=== PATIENT | female | born 1945 | race Caucasian/White ===

== ENCOUNTER 2016-11-15 10:38 | Emergency (ER) | payer MEDICARE, BC ==
[2016-11-15 10:48] VITALS: BP 156/75
--- NOTE | 2016-11-15 11:15 | ED Physician Documentation ---
History of Present Illness - Stated complaint Stated Complaint: LT FT INJURY - Chief complaint Chief Complaint: Ext Problem - Additonal information Additional information: hx from pt 71 female inverted L ankle pain 5th MT and great toe Review of Systems Musculoskeletal: reports: Pain with weight bearing PD PAST MEDICAL HISTORY - Present Medications Home Medications: Ambulatory Orders Medication Instructions Recorded Confirmed Aspirin 81 mg PO DAILY 03/16/13 11/15/16 Atenolol [Tenormin] 25 mg PO DAILY 03/16/13 11/15/16 Calcium [Calcio [place]] 1,200 mg PO DAILY 03/16/13 11/15/16 Cholecalciferol (Vitamin D3) 2,000 unit PO DAILY 03/16/13 11/15/16 [Vitamin D3] Cod Liver Oil 2,000 mg PO DAILY 03/16/13 11/15/16 Hydrochlorothiazide 25 mg PO DAILY 03/16/13 11/15/16 Losartan [Cozaar] 50 mg PO DAILY 03/16/13 11/15/16 Lovastatin [Mevacor] 20 mg PO DAILY 03/16/13 11/15/16 Magnesium Oxide [Magnesium] 500 mg PO DAILY 03/16/13 11/15/16 Multivitamin [Multivitamins] 1 each PO DAILY 03/16/13 11/15/16 Biotin 1,000 mcg PO DAILY 06/08/16 11/15/16 - Allergies Allergies/Adverse Reactions: Allergies Allergy/AdvReac Type Severity Reaction Status Date / Time adhesive Allergy Unknown Verified 11/15/16 10:47 melon Allergy Hives Verified 11/15/16 10:47 silver * Allergy Rash Verified 11/15/16 10:44 [From Tegaderm AG Mesh] strawberry Allergy Hives Verified 11/15/16 10:47 watermelon Allergy Hives Verified 11/15/16 10:47 PD ED PE NORMAL - Vitals Vital signs reviewed: Yes - Extremities Extremities: Other (ankle NT, foot TTP and swelling to mid 5th MT, bruising and some pain with ROM to proximal great toe, MSV intact, no open wounds) Results - Vitals Vitals: Vital Signs - 24 hr 11/15/16 10:42 Temperature 36.5 C Heart Rate 68 Respiratory 14 Rate Blood Pressure 156/75 H O2 Saturation 100 Oxygen O2 Source Room air - Rads (name of study) foot Radiology: See rad report (cortical irreg head 1st MT and base 5th MT could represent mildly displaced fx )and that is where pt hurts)) PD MEDICAL DECISION MAKING - ED course ED course: possible fx seen on xray discussed splint / crutches or knee scooter vs walking boot - think walking boot will be safest and best for pt Departure - Departure Disposition: 01 Home, Self Care Clinical Impression: Foot fracture, left Qualifiers: Encounter type: initial encounter Fracture type: closed Qualified Code(s): S92.902A - Unspecified fracture of left foot, initial encounter for closed fracture Condition: Good Instructions: ED Fx Foot, ED Boot Aircast Walker Follow-Up: Carla Monique MD [Primary Care Provider] - [facility] [Provider Group] Comments: There is a slight irregularity to base of the 5th and the head of the 1st metatarsals which matches the sites that are painful and suggests there are subtle fractures in those areas Please remember to take the boot off with resting to decrease the chance of a blood clot Ice elevation and tylenol as needed for the pain Follow up with orthopedics - you need to call the clinic to schedule And please get your blood pressure rechecked - it was high today
--- NOTE | 2016-11-15 11:42 | XRAY Preliminary Report ---
Exam: XR Foot 3 View LT Impression: Cortical irregularity involving the head of the first metatarsal that may represent degen erative changes or a mildly displaced fracture. Cortical irregularity involving the base of the fifth metatarsal that may represent a mildly displace d fracture or nutrient channel. [facility] SITE ID: [id number]
--- NOTE | 2016-11-15 11:45 | XRAY Report ---
EXAM: LEFT FOOT RADIOGRAPHY EXAM DATE: 11/15/2016 11:24 AM. CLINICAL HISTORY: 5th MT and great toe pain/swell/bruise. COMPARISON: None. TECHNIQUE: 3 views. FINDINGS: Cortical irregularity involving the head of the first metatarsal may represent degenerative changes o r a fracture. Mild joint space narrowing is seen involving the first metatarsal-phalangeal joint. No radiopaque foreign body is seen. There is cortical irregularity at the base of the fifth metatarsal that may represent a nutrient jane natalie or mildly displaced fracture. Adjacent soft tissue swelling is noted. Impression: Cortical irregularity involving the head of the first metatarsal that may represent degen erative changes or a mildly displaced fracture. Cortical irregularity involving the base of the fifth metatarsal that may represent a mildly displace d fracture or nutrient channel. [facility] Referring Provider Line: [phone] SITE ID: [id number]
== END 2016-11-15 12:51 | disposition home or self-care (01) ==
LOC: ED 10:38
DX: S92.902A Unspecified fracture of left foot, initial encounter for closed fracture (principal); X50.0XXA Overexertion from strenuous movement or load, initial encounter; Z79.82 Long term (current) use of aspirin
CPT/HCPCS: 99283

== ENCOUNTER 2017-08-04 15:26 | Outpatient (CLI) | payer MEDICARE, BC ==
--- NOTE | 2017-08-05 16:24 | Mammography Report ---
DATE OF SERVICE: 08/04/2017 DIGITAL SCREENING MAMMOGRAM: 08/04/2017 CLINICAL INDICATION: A 71-year-old with personal history of left breast cancer. COMPARISON: 10/2015, 06/2014, 12/2012, 07/2012, 11/2011, 05/2011, 10/2010, 09/2010. TECHNIQUE: Routine CC and MLO projections were obtained of the breasts. FINDINGS: The breasts again demonstrate scattered fibroglandular densities bilaterally. Postoperative and posttreatment changes in the left breast are stable. Coarse and punctate, typically benign calcifications are present. No suspicious masses, clustered microcalcifications, or regions of architectural distortion are identified. IMPRESSION: BENIGN FINDINGS. RECOMMENDATION: ROUTINE ANNUAL SCREENING UNLESS OTHERWISE CLINICALLY INDICATED. BIRADS CATEGORY 2-BENIGN FINDINGS. STANDARD QUALIFYING STATEMENTS: 1. This examination was reviewed with the aid of Computer-Aided Detection (CAD). 2. A negative or benign imaging report should not delay biopsy if clinically suspicious findings are present. Consider surgical consultation if warranted. More than 5% of cancers are not identified by imaging. 3. Dense breasts may obscure an underlying neoplasm. TD: 08/05/2017 16:24
== END 2017-08-04 15:27 | disposition home or self-care (01) ==
LOC: DI 15:26
PROVIDERS: ATTEND Internal Medicine Hematology & Oncology
DX: Z12.31 Encounter for screening mammogram for malignant neoplasm of breast (principal); Z85.3 Personal history of malignant neoplasm of breast
CPT/HCPCS: 77067

== ENCOUNTER 2018-04-25 10:51 | Outpatient (CLI) | payer MEDICARE, BC ==
--- NOTE | 2018-04-25 18:01 | XRAY Report ---
Reason: MALIGNANT NEOPLASM OF UNSPECIFIED SITE OF LEFT FEM Procedure Date: 04/25/2018 Accession Number: [id number] / [id number] Procedure: XR - Chest 2 View X-Ray CPT Code: 93262 FULL RESULT: EXAM: CHEST RADIOGRAPHY EXAM DATE: 04/25/2018 11:07 AM. CLINICAL HISTORY: Left-sided lower rib pain. History of lumpectomy 7 years ago. COMPARISON: None. TECHNIQUE: 2 views. FINDINGS: Lungs/Pleura: Normal volumes. No focal opacities are evident. No pleural effusion or pneumothorax. Mediastinum: Normal cardiomediastinal contour. Other: Degenerative changes within the spine. IMPRESSION: No acute cardiopulmonary abnormality. [facility]
== END 2018-04-25 10:52 | disposition home or self-care (01) ==
LOC: DI 10:51
PROVIDERS: ATTEND Surgery
DX: R07.81 Pleurodynia (principal); C50.912 Malignant neoplasm of unspecified site of left female breast
CPT/HCPCS: 71046

== ENCOUNTER 2018-08-04 09:50 | Outpatient (CLI) | payer MEDICARE, BC ==
--- NOTE | 2018-08-07 09:26 | Mammography Report ---
Reason: SCREENING MAMMO Procedure Date: 08/04/2018 Accession Number: [id number] / [id number] Procedure: VANESSA - Screening Mammo w/Jon CPT Code: FULL RESULT: EXAM: Screening Mammo w/Jon DATE: 08/04/2018 10:36 AM CLINICAL HISTORY: Routine screening. Personal history of treated breast cancer left breast 2010. Family history breast cancer in sister at age 64. TECHNIQUE: Bilateral CC and MLO views were obtained. COMPARISON: 08/04/2017 through 12/08/2012 FINDINGS: The breasts demonstrate scattered fibroglandular densities bilaterally. Left breast: There are stable lumpectomy changes from the posterior upper outer left breast with dense fat necrosis calcifications in the operative bed. There are no suspicious masses, calcifications or areas of nonoperative distortion. Right breast: There are no suspicious masses, calcifications or areas of distortion. Stable biopsy marker in the superior breast. IMPRESSION: Benign findings RECOMMENDATION: Routine annual screening unless otherwise clinically indicated. BI-RADS CATEGORY 2: Benign findings STANDARD QUALIFYING STATEMENTS: 1. This examination was not reviewed with the aid of Computer-Aided Detection (CAD). 2. A negative or benign imaging report should not preclude biopsy if clinically suspicious findings are present. 3. Dense breasts may obscure an underlying neoplasm. 4. This examination was reviewed with the aid of 3D breast imaging (tomosynthesis).
== END 2018-08-04 09:51 | disposition home or self-care (01) ==
LOC: DI 09:50
PROVIDERS: ATTEND Internal Medicine Hematology & Oncology
DX: Z12.31 Encounter for screening mammogram for malignant neoplasm of breast (principal); Z85.3 Personal history of malignant neoplasm of breast; Z80.3 Family history of malignant neoplasm of breast
CPT/HCPCS: 77063; 77067

== ENCOUNTER 2018-08-04 09:55 | Outpatient (CLI) | payer MEDICARE, BC ==
--- NOTE | 2018-08-07 16:32 | DEXA Report ---
Reason: ASYMPTOMATIC MENOPAUSAL STATE Procedure Date: 08/04/2018 Accession Number: [id number] / [id number] Procedure: DEX - Dexa Spine and/or Hip CPT Code: FULL RESULT: EXAM: Dexa Spine and/or Hip DATE: 08/04/2018 10:55 AM CLINICAL HISTORY: ASYMPTOMATIC MENOPAUSAL STATE TECHNIQUE: Dual energy x-ray absorptiometry (DXA) was performed on a [employer] [place] System. Regions measured are the AP Spine, femoral neck, and if needed forearm. COMPARISON: None. In accordance with the International Society for Clinical Densitometry (ISCD) guidelines, data from previous exams may be reanalyzed using current recommendations and techniques. This is done to allow a more accurate basis for comparison with the current study. FINDINGS: The data for the lumbar spine is as follows: BMD (g/cm/cm) T-SCORE Z-SCORE REGION L1 0.978 -1.3 -0.4 L2 1.270 0.6 1.4 L3 1.302 0.9 1.7 L4 1.287 0.7 1.6 TOTAL 1.219 0.3 1.2 NOTE: All evaluable vertebrae are used for classification The data for the hip is as follows: BMD (g/cm/cm) T-SCORE Z-SCORE REGION Neck 0.854 -1.3 -0.1 TOTAL 0.875 -1.0 -0.1 NOTE: The femoral neck or total proximal femur, whichever is lowest, is used for classification. IMPRESSION: THE WHO CLASSIFICATION BASED ON THE INTERNATIONAL REFERENCE STANDARD IS OSTEOPENIA. THE FRACTURE RISK IS INCREASED. RECOMMENDATION: Patients with diagnosis of osteoporosis or osteopenia should have regular bone mineral density assessment. For those eligible for Medicare, routine testing is allowed once every 2 years. Testing frequency can be increased for patients who have rapidly progressing disease or for those who are receiving medical therapy to restore bone mass. COMMENT: World Health Organization (WHO) definitions for osteoporosis and osteopenia: NORMAL BMD: T-score at -1.0 or higher, fracture risk is low OSTEOPENIA BMD: T-score between -1.0 and -2.5, fracture risk is increased. OSTEOPOROSIS BMD: T-score at -2.5 or lower, fracture risk is high. National Osteoporosis Foundation recommends: 1. Obtain adequate dietary calcium (at least 1200 mg per day) and vitamin D (400-800 international units per day). 2. Participate, as appropriate, in regular weightbearing and muscle-strengthening exercise. 3. Avoid tobacco use and reduce alcohol and caffeine intake. 4. For more detailed information see the website at www.NOF.org.
== END 2018-08-04 09:56 | disposition home or self-care (01) ==
LOC: DI 09:55
PROVIDERS: ATTEND Registered Nurse
DX: Z13.820 Encounter for screening for osteoporosis (principal); M85.88 Other specified disorders of bone density and structure, other site; N95.8 Other specified menopausal and perimenopausal disorders
CPT/HCPCS: 77080

== ENCOUNTER 2019-03-23 09:24 | Outpatient (CLI) | payer MEDICARE, BC ==
--- NOTE | 2019-03-23 18:23 | XRAY Report ---
Reason: PLEURODYNIA Procedure Date: 03/23/2019 Accession Number: [id number] / [id number] Procedure: XR - Ribs 2 View LT CPT Code: FULL RESULT: EXAM: CHEST AND LEFT RIB RADIOGRAPHY EXAM DATE: 03/23/2019 10:03 AM HISTORY: PLEURODYNIA. COMPARISON: CHEST 2 VIEW 04/25/2018 11:03 AM TECHNIQUE: AP and oblique views of the left ribs and single PA view of the chest, three views total FINDINGS: No rib fracture or other significant rib lesion. No apparent pulmonary consolidation, pneumothorax or pleural fluid. Normal heart size. IMPRESSION: No rib abnormality. No acute disease of the chest.
== END 2019-03-23 09:25 | disposition home or self-care (01) ==
LOC: DI 09:24
PROVIDERS: ATTEND Nurse Practitioner Family
DX: R07.81 Pleurodynia (principal)

== ENCOUNTER 2019-08-08 15:30 | Outpatient (CLI) | payer MEDICARE, BC ==
--- NOTE | 2019-08-08 17:22 | Mammography Report ---
Reason: ROUTINE MAMMO Procedure Date: 08/08/2019 Accession Number: [id number] / [id number] Procedure: VANESSA - Screening Mammo w/Jon CPT Code: Final Report FULL RESULT: EXAM: Screening Mammo w/Jon DATE: 08/08/2019 4:00 PM CLINICAL HISTORY: Nulliparous patient with history of left lumpectomy and radiation therapy. Sister with breast cancer. TECHNIQUE: (B) - Bilateral CC and MLO views were obtained. COMPARISON: 08/04/2018, 08/04/2017, 10/15/2015, 06/05/2014, 12/08/2012, 07/06/2012, 11/24/2011 and 05/19/2011 PARENCHYMAL PATTERN: (D) - The breasts demonstrate heterogeneously dense fibroglandular parenchyma bilaterally. FINDINGS: No significant interval.Biopsy clip and scattered benign-appearing right breast calcifications are stable. There are no new suspicious masses, calcifications, or areas of distortion. There is motion artifact on the left MLO projection and the patient will be recalled for [facility] repeat. IMPRESSION: Negative right breast. Technical repeat left breast. RECOMMENDATION: (REPEAT) - Left MLO projection. BI-RADS CATEGORY: (0) - Incomplete Examination - need additional evaluation. STANDARD QUALIFYING STATEMENTS: 1. This examination was not reviewed with the aid of Computer-Aided Detection (CAD). 2. A negative or benign imaging report should not preclude biopsy if clinically suspicious findings are present. 3. Dense breasts may obscure an underlying neoplasm. 4. This examination was reviewed with the aid of 3D breast imaging (tomosynthesis).
== END 2019-08-08 15:31 | disposition home or self-care (01) ==
LOC: DI 15:30
PROVIDERS: ATTEND Internal Medicine Hematology & Oncology
DX: Z12.31 Encounter for screening mammogram for malignant neoplasm of breast (principal); Z85.3 Personal history of malignant neoplasm of breast; Z80.3 Family history of malignant neoplasm of breast; Z92.3 Personal history of irradiation
CPT/HCPCS: 77063; 77067

== ENCOUNTER 2019-09-11 15:30 | Emergency (ER) | payer MEDICARE, BC ==
[2019-09-11 15:50] VITALS: BP 132/118
--- NOTE | 2019-09-11 17:57 | ED Physician Documentation ---
PD HPI FEMALE - Stated complaint Stated Complaint: FEMALE /UNBLE TO VOID - Chief complaint Chief Complaint: General - History obtained from History obtained from: Patient - History of Present Illness Timing - onset: Last night, Yesterday Timing - details: Gradual onset (She was seen yesterday for cystoscopy by her urologist with removal of some bladder wall lesions. She denies any hematuria. She states she has been voiding only small amounts since the procedure one is having a feeling of bladder fullness and cramping overnight and into this morning. She did not have any fever or chills. She denies any diffuse abdominal pain.) Associated symptoms: Urinary frequency (with feeling of incomplete emptying). No: Fever, Vaginal discharge, Hematuria Similar symptoms before: Has not had sx before Recently seen: Surgery (yesterday, cystoscopy with removal bladder lesions.) Review of Systems Constitutional: denies: Fever, Chills, Myalgias Nose: denies: Rhinorrhea / runny nose, Congestion Throat: denies: Sore throat Respiratory: denies: Cough GI: denies: Nausea, Vomiting, Diarrhea : reports: Unable to Void (feeling of only small amounts out). 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 : Other - Past Surgical History Past Surgical History: Yes /APPARATUS ENGINEERING TECHNOLOGIST: Other - Present Medications Home Medications: Ambulatory Orders Medication Instructions Recorded Confirmed Calcium [Calcio [place]] 600 mg PO DAILY 03/16/13 09/04/19 Cholecalciferol (Vitamin D3) 2,000 unit PO DAILY 03/16/13 09/04/19 [Vitamin D3] Hydrochlorothiazide 25 mg PO DAILY 03/16/13 09/04/19 Losartan [Cozaar] 100 mg PO DAILY 03/16/13 09/04/19 Lovastatin [Mevacor] 20 mg PO DAILY 03/16/13 09/04/19 Multivitamin [Multivitamins] 1 each PO DAILY 03/16/13 09/04/19 atenoloL [Tenormin] 25 mg PO DAILY 03/16/13 09/04/19 Biotin 5,000 mcg PO DAILY 06/08/16 09/04/19 Phenazopyridine HCl [Pyridium] 200 mg PO TID PRN #10 tablet 09/11/19 - Allergies Allergies/Adverse Reactions: Allergies Allergy/AdvReac Type Severity Reaction Status Date / Time adhesive Allergy Unknown Verified 09/11/19 15:44 melon Allergy Hives Verified 09/11/19 15:44 silver * Allergy Rash Verified 09/11/19 15:44 [From Tegaderm AG Mesh] strawberry Allergy Hives Verified 09/11/19 15:44 watermelon Allergy Hives Verified 03 15:44 - Social History Does the pt smoke?: No Smoking Status: Never smoker Does the pt drink ETOH?: No Does the pt have substance abuse?: No PD ED PE NORMAL - Vitals Vital signs reviewed: Yes - General General: Alert and oriented X 3, No acute distress, Well developed/nourished - Cardiac Cardiac: RRR, No murmur - Respiratory Respiratory: Clear bilaterally - Abdomen Abdomen: Normal bowel sounds, Soft, Non distended, No organomegaly, Other (There is some tenderness in the suprapubic and bladder area. There is no percussion or rebound tenderness. There is no diffuse tenderness.) - Female Female : Deferred - Rectal Rectal: Deferred - Back Back: No CVA TTP - Derm Derm: Normal color, Warm and dry - Neuro Neuro: Alert and oriented X 3, No motor deficit, Normal speech Results - Vitals Vitals: Vital Signs - 24 hr 09/11/19 15:44 Temperature 36.7 C Heart Rate 63 Respiratory 16 Rate Blood Pressure 132/118 H O2 Saturation 96 Oxygen O2 Source Room air PD MEDICAL DECISION MAKING - ED course Complexity details: re-evaluated patient (I talked with the patient about any further investigation at this time versus hydrating well overnight and using some phenazopyridine presuming some urinary bladder discomfort and spasms. She was agreeable on that and would follow-up back here or with her urologist if not more normal urine output into tomorrow.), considered differential (At this point the patient had a bladder scan showing only 100 mL. She was having difficulty getting much urine out so there is very slight retention but not considerable. I think she mostly has decreased urine output because of under hydration. She states she had not had much to drink today for concern of "filling up too much" and had less intake yesterday as well. Other consideration would be renal sufficiency and not producing urine but that would be unusual so abruptly and she is feeling well otherwise. She had cystoscopy with removal of some lesions so could consider the possibility of bladder perforation procedurally and the urine growing out of the bladder rather than voiding. However abdominal exam is insufficiently tender at this point to suggest that likely.), d/w patient Departure - Departure Disposition: 01 Home, Self Care Clinical Impression: Urinary urgency, Status post surgical removal and fulguration of bladder neoplasm Condition: Stable Record reviewed to determine appropriate education?: Yes Follow-Up: MINERVA JONES MD [Physician No Access] - Prescriptions: Phenazopyridine HCl [Pyridium] 200 mg PO TID PRN #10 tablet PRN Reason: dysuria Comments: Your bladder scanner only showed 100 mL which is not an excessively large amoun t. At this point the most likely assumption is that you are under hydrated and just not producing as much. Stay well-hydrated tonight and tomorrow. Use the phenazopyridine to decrease bladder irritation and therefore less discomfort and likely spasms. Other considerations would be a perforation of the bladder from the surgery and the urine is going outside of the bladder rather than emptying out in the normal way. Your abdomen does not feel like that is going on. If you still have little urine output into tomorrow, then recheck for potential CT or ultrasound to evaluate for free fluid in the pelvis around the bladder. Continue your other usual medicines. Discharge Date/Time: 09/11/19 18:43
[2019-09-11] MEDS ORDERED: ACETAMINOPHEN 325 MG TABLET PO STA (18:27)
[2019-09-11] MEDS ORDERED: PHENAZOPYRIDINE 100 MG TABLET PO STA (18:27)
== END 2019-09-11 18:43 | disposition home or self-care (01) ==
LOC: ED 15:30
DX: R39.15 Urgency of urination (principal); R33.9 Retention of urine, unspecified; Z98.890 Other specified postprocedural states; I10 Essential (primary) hypertension
CPT/HCPCS: 51798; 99283; A9270

== ENCOUNTER 2019-09-17 14:20 | Outpatient (CLI) | payer MEDICARE, BC ==
[2019-09-17 17:44] LABS: ALBUMIN 4.7 g/dL (3.2-5.5); ALBUMIN/GLOBULIN RATIO 1.5 (1.0-2.2); BILIRUBIN,TOTAL 0.9 mg/dL (0.2-1.0); CALCIUM 9.8 mg/dL (8.5-10.3); CREATININE 4.5 mg/dL (0.4-1.0); TOTAL PROTEIN 7.9 g/dL (6.7-8.2)
[2019-09-17 19:06] LABS: BASOPHILS % (AUTO) 0.3 %; EOSINOPHILS # (AUTO) 0.1 10^3/uL (0.0-0.7); EOSINOPHILS % (AUTO) 0.6 %; HGB - HEMOGLOBIN 15.9 g/dL (12.0-16.0); LYMPHOCYTES # (AUTO) 1.2 10^3/uL (1.5-3.5); LYMPHOCYTES % (AUTO) 12.3 %; MEAN CORPUSCULAR HEMOGLOBIN 32.5 pg (27.0-31.0); MEAN CORPUSCULAR HGB CONC 33.8 g/dL (32.0-36.0); MEAN CORPUSCULAR VOLUME 96.1 fL (81.0-99.0); MEAN PLATELET VOLUME 9.8 fL (7.9-10.8); MONOCYTES # (AUTO) 0.7 10^3/uL (0.0-1.0); MONOCYTES % (AUTO) 7.5 %; NEUTROPHILS # (AUTO) 7.5 10^3/uL (1.5-6.6); NEUTROPHILS % (AUTO) 78.9 %; PLT - PLATELET COUNT 352 10^3/uL (130-450); RED BLOOD COUNT 4.89 10^6/uL (4.20-5.40); RED CELL DISTRIBUTION WIDTH 12.4 % (12.0-15.0); WHITE BLOOD COUNT 9.6 x10^3/uL (4.8-10.8)
[2019-09-19 10:35] LABS: HEPATITIS A IGM NON-REACTIVE (NON-REACTIVE); HEPATITIS B SURFACE ANTIGEN NON-REACTIVE (NON-REACTIVE); HEPATITIS C ANTIBODY NON-REACTIVE (NON-REACTIVE)
[2019-09-19 14:40] LABS: HIV AG/AB 4TH GEN NON-REACTIVE (NON-REACTIVE)
== END 2019-09-17 14:21 | disposition home or self-care (01) ==
LOC: LAB.S 14:20
PROVIDERS: ATTEND Nurse Practitioner Family
DX: H44.113 Panuveitis, bilateral (principal); R19.7 Diarrhea, unspecified
CPT/HCPCS: 36415; 80053; 80074; 81599; 85025; 86038; 87389

== ENCOUNTER 2019-09-17 19:31 | Emergency (ER) | payer MEDICARE, BC ==
--- NOTE | 2019-09-17 20:11 | ED Physician Documentation ---
History of Present Illness - Stated complaint Stated Complaint: BLOOD WORK RESULTS - PCP REFERRAL - Chief complaint Chief Complaint: General - History obtained from History obtained from: Patient - History of Present Illness Timing: How many weeks ago (1) Pain level max: 5 Pain level now: 0 - Additonal information Additional information: 74-year-old female presents to the emergency department stating that she has had abdominal distention for the last week and decreased urination. She is one-week status post a bladder biopsy with Dr. Albert Diallo, urology in [place]. She states she has had a 10 pound weight gain. No fevers. Feels like she is short of breath secondary to the abdominal distention. Nothing makes it better or worse. 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 - Present Medications Home Medications: Ambulatory Orders Medication Instructions Recorded Confirmed Calcium [Calcio Sofia] 600 mg PO DAILY 03/16/13 09/04/19 Cholecalciferol (Vitamin D3) 2,000 unit PO DAILY 03/16/13 09/04/19 [Vitamin D3] Hydrochlorothiazide 25 mg PO DAILY 03/16/13 09/04/19 Losartan [Cozaar] 100 mg PO DAILY 03/16/13 09/04/19 Lovastatin [Mevacor] 20 mg PO DAILY 03/16/13 09/04/19 Multivitamin [Multivitamins] 1 each PO DAILY 03/16/13 09/04/19 atenoloL [Tenormin] 25 mg PO DAILY 03/16/13 09/04/19 Biotin 5,000 mcg PO DAILY 06/08/16 09/04/19 Phenazopyridine HCl [Pyridium] 200 mg PO TID PRN #10 tablet 09/11/19 - Allergies Allergies/Adverse Reactions: Allergies Allergy/AdvReac Type Severity Reaction Status Date / Time adhesive Allergy Unknown Verified 03/16/20 20:37 melon Allergy Hives Verified 09/17/19 20:37 silver * Allergy Rash Verified 09/17/19 20:37 [From Tegaderm AG Mesh] strawberry Allergy Hives Verified 09/17/19 20:37 watermelon Allergy Hives Verified 09/17/19 20:37 - Social History Does the pt smoke?: No Smoking Status: Never smoker Does the pt drink ETOH?: No Does the pt have substance abuse?: No - Immunizations Immunizations are current?: Yes - POLST Patient has POLST: No PD ED PE NORMAL - Vitals Vital signs reviewed: Yes - General General: Alert and oriented X 3, No acute distress - HEENT HEENT: Moist mucous membranes - Neck Neck: Supple, no meningeal sign - Cardiac Cardiac: RRR - Respiratory Respiratory: No respiratory distress, Clear bilaterally - Abdomen Abdomen: Soft, Non tender, Other (moderate distention with ascites.) - Back Back: No CVA TTP - Derm Derm: Warm and dry - Extremities Extremities: No edema - Neuro Neuro: Alert and oriented X 3 - Psych Psych: Normal mood, Normal affect Results - Vitals Vitals: Vital Signs - 24 hr 09/17/19 09/17/19 19:52 21:18 Temperature 36.1 C L Heart Rate 92 73 Respiratory 16 18 Rate Blood Pressure 129/109 H 149/68 H O2 Saturation 96 98 Oxygen O2 Source Room air - Labs Labs: Microbiology 09/17/19 20:52 Body Fluid Culture - Preliminary Other - Abdominal Laboratory Tests 09/17/19 09/17/19 09/17/19 20:15 20:15 20:15 WBC 8.4 RBC 4.43 Hgb 14.9 Hct 42.1 MCV 95.0 MCH 33.6 H MCHC 35.4 RDW 12.0 Plt Count 305 MPV 9.5 Neut # (Auto) 6.4 Lymph # (Auto) 1.2 L [place] # (Auto) 0.7 Eos # (Auto) 0.1 Baso # (Auto) 0.0 Absolute Nucleated RBC 0.00 Nucleated RBC % 0.0 PT 14.2 H INR 1.3 H APTT 24.1 L Sodium 127 L Potassium 4.1 Chloride 95 L Carbon Dioxide 19 L Anion Gap 13.0 BUN 76 H Creatinine 4.2 H Estimated GFR (MDRD) 10 L Glucose 164 H Calcium 9.4 Total Bilirubin 0.9 AST 38 ALT 19 Alkaline Phosphatase 77 Total Protein 7.4 Albumin 4.4 Globulin 3.0 Albumin/Globulin Ratio 1.5 Lipase 77 H Urine Color Urine Clarity Urine pH Ur Specific [place] Urine Protein Urine Glucose (UA) Urine Ketones Urine Occult Blood Urine Nitrite Urine Bilirubin Urine Urobilinogen Ur Leukocyte Esterase Urine RBC Urine WBC Ur Squamous Epith Cells Amorphous Sediment Urine Bacteria Ur Microscopic Review Urine Culture Comments Urine Creatinine Fluid Source Fluid Color Fluid Clarity Fluid WBC Fluid RBC Fluid Neutrophils % Fluid Lymphocytes % Fluid Monocytes % Fld Mesothelial Cell % Ethyl Alcohol < 5.0 09/17/19 09/17/19 09/17/19 20:20 20:52 20:59 WBC RBC Hgb Hct MCV MCH MCHC RDW Plt Count MPV Neut # (Auto) Lymph # (Auto) [place] # (Auto) Eos # (Auto) Baso # (Auto) Absolute Nucleated RBC Nucleated RBC % PT INR APTT Sodium Potassium Chloride Carbon Dioxide Anion Gap BUN Creatinine Estimated GFR (MDRD) Glucose Calcium Total Bilirubin AST ALT Alkaline Phosphatase Total Protein Albumin Globulin Albumin/Globulin Ratio Lipase Urine Color YELLOW Urine Clarity HAZY Urine pH 5.0 Ur Specific [place] 1.025 Urine Protein TRACE Urine Glucose (UA) NEGATIVE Urine Ketones NEGATIVE Urine Occult Blood LARGE H Urine Nitrite NEGATIVE Urine Bilirubin NEGATIVE Urine Urobilinogen 0.2 (NORMAL) Ur Leukocyte Esterase NEGATIVE Urine RBC 11-25 H Urine WBC 0-3 Ur Squamous Epith Cells NONE SEEN Amorphous Sediment Moderate Urine Bacteria None Seen Ur Microscopic Review INDICATED Urine Culture Comments NOT INDICATED Urine Creatinine 13.1 Fluid Source PERITONEAL Fluid Color STRAW Fluid Clarity CLEAR Fluid WBC 93 Fluid RBC < 3000 Fluid Neutrophils % 4 Fluid Lymphocytes % 13 Fluid Monocytes % 83 Fld Mesothelial Cell % Not Reportable Ethyl Alcohol Procedures - Paracentesis Preparation: Consent obtained, Ultrasound guidance, Sterile prep and drape, Local anesthesia Location: RLQ Technique: Z-tract, Mallikadinger Fluid: Clear (yellow), Sent for cell count, Sent for gram stain, Sent for glucose, Volume - enter cc (2.5L), Other (sent for creatinine) Aftercare: No complications, Patient tolerated well, Dressing applied PD MEDICAL DECISION MAKING - ED course Complexity details: reviewed results, re-evaluated patient, considered differential, d/w patient ED course: 74-year-old female with what appears to be a bladder leak after cystoscopy with biopsy 1 week ago. This appears to be causing ascites. Creatinine level is elevated in the ascitic fluid. 2.5 L of fluid were drained from the abdomen. Patient feels much better. Urinary catheter left in place. Discussed the case with urology, Dr. Diallo and will transfer to [place] for further care. COBRA forms filled out. Discussed the case at 2210.Patient signed out to Dr. Engle awaiting transfer. We will hold antibiotics at this time as her urine does not appear infected nor does the peritoneal fluid. No fever. Normal white count. Departure - Departure Disposition: 02 Transfer Acute Care Hosp Clinical Impression: Bladder perforation, intraoperative, Uremia Ascites Qualifiers: Ascites type: other type Qualified Code(s): R18.8 - Other ascites Acute renal failure (ARF) Qualifiers: Acute renal failure type: unspecified Qualified Code(s): N17.9 - Acute kidney failure, unspecified Condition: Stable
[2019-09-17] MEDS ORDERED: LIDOCAINE 2%-EPI 1:100000 20 ML MDV SUBQ STA (20:25)
[2019-09-17 20:33] LABS: BASOPHILS % (AUTO) 0.2 %; EOSINOPHILS # (AUTO) 0.1 10^3/uL (0.0-0.7); EOSINOPHILS % (AUTO) 0.8 %; HGB - HEMOGLOBIN 14.9 g/dL (12.0-16.0); LYMPHOCYTES # (AUTO) 1.2 10^3/uL (1.5-3.5); LYMPHOCYTES % (AUTO) 14.1 %; MEAN CORPUSCULAR HEMOGLOBIN 33.6 pg (27.0-31.0); MEAN CORPUSCULAR HGB CONC 35.4 g/dL (32.0-36.0); MEAN PLATELET VOLUME 9.5 fL (7.9-10.8); MONOCYTES # (AUTO) 0.7 10^3/uL (0.0-1.0); MONOCYTES % (AUTO) 8.4 %; NEUTROPHILS # (AUTO) 6.4 10^3/uL (1.5-6.6); PLT - PLATELET COUNT 305 10^3/uL (130-450); RED BLOOD COUNT 4.43 10^6/uL (4.20-5.40); WHITE BLOOD COUNT 8.4 x10^3/uL (4.8-10.8)
[2019-09-17 20:39] LABS: BILIRUBIN,URINE NEGATIVE (NEGATIVE); GLUCOSE, URINE (UA) NEGATIVE (NEGATIVE); KETONES,URINE (UA) NEGATIVE (NEGATIVE); LEUKOCYTE ESTERASE, URINE NEGATIVE (NEGATIVE); NITRITE,URINE NEGATIVE (NEGATIVE); OCCULT BLOOD,URINE LARGE (NEGATIVE); PROTEIN,URINE TRACE mg/dL (NEGATIVE); UROBILINOGEN,URINE 0.2 (NORMAL) E.U./dL (NORMAL)
[2019-09-17 20:40] LABS: INR 1.3 (0.8-1.2); PT - PROTHROMBIN TIME 14.2 secs (9.9-12.6)
[2019-09-17 20:45] LABS: ALBUMIN 4.4 g/dL (3.2-5.5); ALBUMIN/GLOBULIN RATIO 1.5 (1.0-2.2); ALKALINE PHOSPHATASE 77 IU/L (42-121); ALT ALANINE AMINOTRANSFERASE 19 IU/L (10-60); AST ASPARTATE AMINOTRANSFERASE 38 IU/L (10-42); BILIRUBIN,TOTAL 0.9 mg/dL (0.2-1.0); BUN - BLOOD UREA NITROGEN 76 mg/dL (6-20); CALCIUM 9.4 mg/dL (8.5-10.3); CARBON DIOXIDE - CO2 19 mmol/L (21-32); CHLORIDE 95 mmol/L (101-111); CREATININE 4.2 mg/dL (0.4-1.0); GLUCOSE 164 mg/dL (70-100); LIPASE 77 U/L (22-51); SODIUM 127 mmol/L (135-145); TOTAL PROTEIN 7.4 g/dL (6.7-8.2)
[2019-09-17 20:47] LABS: PARTIAL THROMBOPLASTIN TIME 24.1 secs (24.9-33.3)
[2019-09-17 20:51] LABS: CLARITY,URINE HAZY (CLEAR)
[2019-09-17 20:52] LABS: AMORPHOUS SEDIMENT,UR Moderate /LPF; BACTERIA,URINE None Seen /HPF (None Seen); SQUAMOUS EPITHELIAL CELL,UR NONE SEEN (<= Few)
[2019-09-17 21:17] LABS: BF CLARITY CLEAR; BF COLOR STRAW
[2019-09-17 21:23] LABS: CC,BF RBC < 3000 /mm^3
[2019-09-17 21:24] LABS: BF SOURCE PERITONEAL
[2019-09-17 21:58] LABS: LYMPHOCYTES %,BODY FLUID 13; MONOCYTES %,BODY FLUID 83 %
[2019-09-17] MEDS ORDERED: SODIUM CHLORIDE 0.9% 1,000 ML IV ONE (22:12)
[2019-09-17 23:46] VITALS: BP 146/62
== END 2019-09-18 02:09 | disposition short-term general hospital (02) ==
LOC: ED 19:31
DX: N99.71 Accidental puncture and laceration of a genitourinary system organ or structure during a genitourinary system procedure (principal); Y83.8 Other surgical procedures as the cause of abnormal reaction of the patient, or of later complication, without mention of misadventure at the time of the procedure; R18.8 Other ascites; N17.9 Acute kidney failure, unspecified; I10 Essential (primary) hypertension; H44.113 Panuveitis, bilateral; R19.7 Diarrhea, unspecified
CPT/HCPCS: 36415; 49082; 51702; 80053; 80074; 81001; 82570; 83690; 85025; 85610; 85730; 86038; 86039; 86480; 86592; 87070; 87205; 89051; 99285; G0475; 80320; 81003; 81599; 87086; 87389

== ENCOUNTER 2019-09-18 02:14 | Outpatient (CLI) | payer MEDICARE, BC | END 2019-09-18 02:15 | disposition short-term general hospital (02) | LOC: EMS 02:14 | PROVIDERS: ATTEND Surgery | DX: R10.9 Unspecified abdominal pain (principal); N32.89 Other specified disorders of bladder | CPT/HCPCS: A0425; A0428 ==

== ENCOUNTER 2020-08-12 12:40 | Outpatient (CLI) | payer MEDICARE, BC ==
--- NOTE | 2020-08-13 12:29 | Mammography Report ---
BILATERAL DIGITAL SCREENING MAMMOGRAM 3D/2D: 08/12/2020 CLINICAL: Routine screening. Personal history of left breast cancer. Comparison is made to exams dated: 09/03/2019 mammogram, 08/08/2019 mammogram, 08/04/2018 mammogram, and mammogram - [facility]. There are scattered fibroglandular elements in bot h breasts. There are benign calcifications in both breasts. There also are benign post operative findings in th e left breast. No significant masses, calcifications, or other findings are seen in either breast. There has been no significant interval change. IMPRESSION: BENIGN There is no mammographic evidence of malignancy. A 1 year screening mammogram is recommended. This exam was interpreted at Station ID: [id number]. NOTE: For mammograms, a report in lay terms will be sent to the patient. Approximately 15% of breast malignancies will not be visualized mammographically. In the management of a palpable breast mass, a negative mammogram must not discourage biopsy of a clinically suspicious lesion. Electronically Signed By: Dot [email or web address]/[email or web address]:08/12/2020 17:18:26 ACR BI-RADS Category 2: Benign Finding(s) 3342F PARENCHYMAL PATTERN: (A) - The breast(s) demonstrate(s) scattered fibroglandular densities. BI-RADS CATEGORY: (2) - 2 RECOMMENDATION: (ANNUAL) - Recommend routine annual screening mammography. [id number] 1 year screening LATERALITY: (B)
== END 2020-08-12 12:41 | disposition home or self-care (01) ==
LOC: DI 12:40
PROVIDERS: ATTEND Internal Medicine Hematology & Oncology
DX: Z12.31 Encounter for screening mammogram for malignant neoplasm of breast (principal)

== ENCOUNTER 2020-12-29 13:25 | Outpatient (CLI) | payer MEDICARE, BC ==
--- NOTE | 2020-12-29 13:54 | XRAY Report ---
PROCEDURE: Thoracic Spine 2 View INDICATIONS: PAIN IN THORACIC SPINE TECHNIQUE: 3 views of the thoracic spine were acquired. COMPARISON: None. FINDINGS: Bones: No fractures or dislocations. No suspicious bony lesions. 12 pairs of ribs are noted, and a ppear intact where visualized. Soft tissues: No paravertebral stripe thickening. IMPRESSION: Mild degenerative disc disease along the thoracic spine is present but there is no subluxation or oni dence of prior compression fracture. The paravertebral soft tissues appear normal for age. Reviewed by: Vincent Paredes MD on 12/29/2020 1:52 PM PDT Approved by: Vincent Paredes MD on 12/29/2020 1:52 PM PDT Station ID: [id number]
== END 2020-12-29 13:26 | disposition home or self-care (01) ==
LOC: DI 13:25
PROVIDERS: ATTEND Registered Nurse
DX: M51.34 Other intervertebral disc degeneration, thoracic region (principal)

== ENCOUNTER 2021-08-17 08:16 | Outpatient (CLI) | payer MEDICARE, BC ==
[2021-08-17 09:24] LABS: CHOL/HDL RATIO 2.9 (<4.4); CHOLESTEROL 163 mg/dL; HDL CHOLESTEROL 56 mg/dL; LDL CHOLESTEROL,CALCULATED 88 mg/dL; LDL/HDL RATIO 1.6 (<4.4); TRIGLYCERIDES 95 mg/dL; VLDL CHOLESTEROL 19 mg/dL
[2021-08-17 09:35] LABS: ESTIMATED AVERAGE GLUCOSE 131 mg/dL (70-100); HEMOGLOBIN A1c% 6.2 % (4.27-6.07)
--- NOTE | 2021-08-18 07:38 | Mammography Report ---
BILATERAL DIGITAL SCREENING MAMMOGRAM 3D/2D: 08/17/2021 CLINICAL: Routine screening. Personal history of left breast cancer. Comparison is made to exams dated: 08/12/2020 mammogram, 09/03/2019 mammogram, 08/08/2019 mammogram, 019 mammogram, and 08/04/2017 mammogram - [facility]. There are scattered fibrogland ular elements in both breasts. There are benign calcifications in both breasts. There also are benign post operative findings in th e left breast. No significant masses, calcifications, or other findings are seen in either breast. There has been no significant interval change. IMPRESSION: BENIGN There is no mammographic evidence of malignancy. A 1 year screening mammogram is recommended. This exam was interpreted at Station ID: [id number]. NOTE: For mammograms, a report in lay terms will be sent to the patient. Approximately 15% of breast malignancies will not be visualized mammographically. In the management of a palpable breast mass, a negative mammogram must not discourage biopsy of a clinically suspicious lesion. Electronically Signed By: Rocco larson/juanrad:08/17/2021 11:09:26 ACR BI-RADS Category 2: Benign Finding(s) 3342F PARENCHYMAL PATTERN: (A) - The breast(s) demonstrate(s) scattered fibroglandular densities. BI-RADS CATEGORY: (2) - 2 RECOMMENDATION: (ANNUAL) - Recommend routine annual screening mammography. [id number] 1 year screening LATERALITY: (B)
== END 2021-08-17 08:17 | disposition home or self-care (01) ==
LOC: DI.N 08:16
PROVIDERS: ATTEND Internal Medicine Hematology & Oncology
DX: Z12.31 Encounter for screening mammogram for malignant neoplasm of breast (principal); Z85.3 Personal history of malignant neoplasm of breast
CPT/HCPCS: 36415; 80061; 83036; 83721

== ENCOUNTER 2021-09-17 11:09 | Outpatient (CLI) | payer MEDICARE, BC ==
[2021-09-17 11:38] LABS: BASOPHILS % (AUTO) 0.4 %; EOSINOPHILS % (AUTO) 0.7 %; HCT - HEMATOCRIT 44.2 % (37.0-47.0); HGB - HEMOGLOBIN 15.3 g/dL (12.0-16.0); LYMPHOCYTES % (AUTO) 34.6 %; MEAN CORPUSCULAR HGB CONC 34.6 g/dL (32.0-36.0); MEAN CORPUSCULAR VOLUME 95.3 fL (81.0-99.0); MEAN PLATELET VOLUME 9.8 fL (7.9-10.8); MONOCYTES % (AUTO) 9.7 %; NEUTROPHILS % (AUTO) 54.3 %; PLT - PLATELET COUNT 258 10^3/uL (130-450); RED BLOOD COUNT 4.64 10^6/uL (4.20-5.40); RED CELL DISTRIBUTION WIDTH 11.7 % (12.0-15.0); WHITE BLOOD COUNT 6.9 x10^3/uL (4.8-10.8)
[2021-09-17 11:41] LABS: SLIDE REVIEW? Indicated
[2021-09-17 11:42] LABS: ABNORMAL LYMPHS % (MANUAL) 0 %
[2021-09-17 11:56] LABS: BAND NEUTROPHILS % (MANUAL) 2 %; BASOPHILS # (MANUAL) 0.1 10^3/uL (0-0.1); BASOPHILS % (MANUAL) 2 %; EOSINOPHILS # (MANUAL) 0.1 10^3/uL (0-0.7); LYMPHOCYTES # (MANUAL) 1.9 10^3/uL (1.5-3.5); LYMPHOCYTES % (MANUAL) 14 %; MONOCYTES # (MANUAL) 0.5 10^3/uL (0.0-1.0); NEUTROPHILS # (MANUAL) 4.3 10^3/uL (1.5-6.6); REACTIVE LYMPHS % (MANUAL) 14 %
[2021-09-17 11:57] LABS: DIFFERENTIAL COMMENT MANUAL DIFFERENTIAL; PLATELET MORPHOLOGY RARE GIANT PLATELETS (NORMAL); RBC MORPHOLOGY (MULTIPLE) 2+ ANISOCYTOSIS (NORMAL)
[2021-09-17 12:25] LABS: % IRON SATURATION 28 % (20-50); GAMMA GLUTAMYL TRANSPEPTIDASE 15 IU/L (8-38); IRON 100 ug/dL (28-170); TOTAL IRON BINDING CAPACITY 358 ug/dL (250-450); TRANSFERRIN 256 mg/dL (192-382)
== END 2021-09-17 11:10 | disposition home or self-care (01) ==
LOC: LAB 11:09
PROVIDERS: ATTEND Registered Nurse
DX: M85.80 Other specified disorders of bone density and structure, unspecified site (principal); R74.8 Abnormal levels of other serum enzymes; R71.8 Other abnormality of red blood cells
CPT/HCPCS: 36415; 82306; 82668; 82728; 82977; 83540; 84466; 85025

== ENCOUNTER 2021-10-29 06:44 | Outpatient (CLI) | payer MEDICARE, BC ==
--- NOTE | 2021-10-29 12:04 | Ultrasound Report ---
PROCEDURE: Pelvic w/Transvaginal INDICATIONS: PELVIC PAIN TECHNIQUE: Real-time scanning was performed of the pelvic organs, with image documentation. Additional endovagi nal scanning was necessary due to incomplete visualization of the adnexal and endometrial structures by transabdominal scanning. COMPARISON: None. FINDINGS: Neither ovary identified. No adnexal mass demonstrated. The uterine body measures 2.2 x 3.1 x 5.1 cm. There is an midline posterior intramural focal mass, co nsistent with fibroid, measuring 0.6 x 0.9 x 0.9 cm. IMPRESSION: Suspected subcentimeter midline posterior uterine fibroid. Neither ovary is visualized. No adnexal mass. Reviewed by: Gerardo Candelaria MD on 10/29/2021 12:03 PM PDT Approved by: Gerardo Candelaria MD on 10/29/2021 12:03 PM PDT Station ID: [id number]
== END 2021-10-29 06:45 | disposition home or self-care (01) ==
LOC: DI 06:44
PROVIDERS: ATTEND Registered Nurse
DX: D25.1 Intramural leiomyoma of uterus (principal)

== ENCOUNTER 2021-12-30 08:26 | Outpatient (CLI) | payer MEDICARE, BC ==
[2021-12-30 13:14] LABS: ESTIMATED AVERAGE GLUCOSE 126 mg/dL (70-100)
== END 2021-12-30 08:27 | disposition home or self-care (01) ==
LOC: LAB 08:26
PROVIDERS: ATTEND Registered Nurse
DX: R73.01 Impaired fasting glucose (principal)
CPT/HCPCS: 36415; 82947; 83036

== ENCOUNTER 2022-08-11 07:43 | Outpatient (CLI) | payer MEDICARE, BC ==
[2022-08-11] MEDS ORDERED: DIATRIZOATE MEGLU/DIATRIZO SOD 30 ML BOTTLE PO ONE ×2 (07:49→14:48)
[2022-08-11] MEDS ORDERED: iohexoL-300 100 ML VIAL ONE (07:49)
[2022-08-11] MEDS ORDERED: iohexoL-300 100 ML VIAL IVP ONE (14:48)
--- NOTE | 2022-08-11 16:13 | CT Report ---
PROCEDURE: ABDOMEN/PELVIS W INDICATIONS: LLQ ABD PAIN CONTRAST: omni 300 100ml TECHNIQUE: After the administration of intravenous and oral contrast, 5 mm thick sections acquired from the diap hragms to the symphysis. 5 mm thick coronal and sagittal reformats were acquired. For radiation dos e reduction, the following was used: automated exposure control, adjustment of mA and/or kV accordin g to patient size. COMPARISON: None. FINDINGS: Image quality: Excellent. ABDOMEN: Lung bases: Lung bases are clear. Heart size is normal. Solid organs: Low-attenuation of the liver, probably steatosis. Spleen is unremarkable. Gallbladder i s unremarkable, with exception of focal adenomyomatosis at the fundus. Biliary system is non dilated . Pancreas enhances normally. Nodular thickening of the right adrenal gland without a measurable nod ule. Kidneys demonstrate normal size and enhancement, without hydronephrosis. Peritoneum and bowel: Bowel loops demonstrate normal wall thickness and caliber. No free fluid or a ir. Nodes and vessels: No retroperitoneal or mesenteric adenopathy by size criteria. Aorta and inferior vena cava are normal in size. Miscellaneous: Tiny umbilical hernia containing fat. PELVIS: Genitourinary: Bladder wall thickness is normal. Miscellaneous: No inguinal hernias or adenopathy. Bones: No suspicious bony lesions. No vertebral body compression fractures. Grade 1 anterolisthesi s of L4 on L5 and L5 on S1, presumably due to facet arthrosis. Osteoporosis by Hounsfield units crite cosme. IMPRESSION: 1. No acute evaluate to explain the patient's left lower quadrant abdominal pain. No significant dive rticular disease. No nephrolithiasis. 2. Osteoporosis by Hounsfield units criteria. Reviewed by: Frederic Schmitz on 08/11/2022 12:54 PM PST Approved by: Frederic Schmitz on 08/11/2022 12:54 PM PST Station ID: [id number]
== END 2022-08-11 07:44 | disposition home or self-care (01) ==
LOC: DI 07:43
PROVIDERS: ATTEND Nurse Practitioner Family
DX: R10.32 Left lower quadrant pain (principal); M85.80 Other specified disorders of bone density and structure, unspecified site
CPT/HCPCS: 74177; Q9963; Q9967

== ENCOUNTER 2022-08-11 07:44 | Outpatient (CLI) | payer MEDICARE, BC | END 2022-08-11 07:45 | disposition home or self-care (01) | LOC: LAB 07:44 | PROVIDERS: ATTEND Nurse Practitioner Family | DX: Z53.9 Procedure and treatment not carried out, unspecified reason (principal) ==

== ENCOUNTER 2022-08-16 09:50 | Outpatient (CLI) | payer MEDICARE, BC ==
--- NOTE | 2022-08-17 12:23 | Mammography Report ---
BILATERAL DIGITAL SCREENING MAMMOGRAM 3D/2D: 08/16/2022 CLINICAL: Routine screening. Personal history of left breast cancer. Comparison is made to exams dated: 08/17/2021 mammogram, 08/12/2020 mammogram, 09/03/2019 mammogram, 2019 mammogram, 08/04/2018 mammogram, and 08/04/2017 mammogram - [facility]. There are scattered areas of fibroglandular density in both breasts (category b / 25%-50% glandular t issue). There are benign calcifications in both breasts. There also are benign post operative findings in th e left breast. No significant masses, calcifications, or other findings are seen in either breast. There has been no significant interval change. IMPRESSION: BENIGN There is no mammographic evidence of malignancy. A 1 year screening mammogram is recommended. This exam was interpreted at Station ID: [id number]. NOTE: For mammograms, a report in lay terms will be sent to the patient. Approximately 15% of breast malignancies will not be visualized mammographically. In the management of a palpable breast mass, a negative mammogram must not discourage biopsy of a clinically suspicious lesion. Electronically Signed By: Lien arango/fely:08/16/2022 17:44:58 ACR BI-RADS Category 2: Benign Finding(s) 3342F PARENCHYMAL PATTERN: (A) - The breast(s) demonstrate(s) scattered fibroglandular densities. BI-RADS CATEGORY: (2) - 2 RECOMMENDATION: (ANNUAL) - Recommend routine annual screening mammography. [id number] 1 year screening LATERALITY: (B)
== END 2022-08-16 09:51 | disposition home or self-care (01) ==
LOC: DI 09:50
PROVIDERS: ATTEND Internal Medicine Hematology & Oncology
DX: Z12.31 Encounter for screening mammogram for malignant neoplasm of breast (principal); Z85.3 Personal history of malignant neoplasm of breast

== ENCOUNTER 2022-08-24 09:40 | Outpatient (CLI) | payer MEDICARE, BC ==
--- NOTE | 2022-08-24 11:03 | DEXA Report ---
PROCEDURE: Dexa Spine and/or Hip INDICATIONS: OSTEOPENIA TECHNIQUE: Dual energy x-ray absorptiometry (DXA) was performed on a [employer]. Regions measur ed are the AP Spine, femoral neck, and if needed forearm. COMPARISON: DEXA 08/04/2018 FINDINGS: Lumbar Spine: Bone Mineral Density 1.310 g/cm/cm,T score 1.1, normal, increased by 7.5% when compared to the exa m from 08/04/2018. Sclerotic degenerative endplate changes are noted at the L3-4 level. Left Femoral Neck: Bone Mineral Density 0.830 g/cm/cm, T score -1.5, osteopenia. Left Hip: Bone Mineral Density 0.834 g/cm/cm,T score -1.4, osteopenia, decreased by 4.7% when compared to the exam from 08/04/2018. (T score greater or equal to -1.0: NORMAL) (T score from -1.1 to -2.4: OSTEOPENIA) (T score less than or equal to -2.5 to: OSTEOPOROSIS) Impression: 1.Bone mineral density within the osteopenia range at the left hip, and has decreased when compared t o the exam from 08/04/2018. 2.Bone mineral density has increased at the lumbar spine when compared to the prior exam, although sc lerotic degenerative endplate changes are present. Patients with diagnosis of osteoporosis or osteopenia should have regular bone mineral density assess ment. For those eligible for Medicare, routine testing is allowed once every 2 years. Testing frequ ency can be increased for patients who have rapidly progressing disease or for those who are receivin g medical therapy to restore bone mass. Reviewed by: Rocco Cheek MD on 08/24/2022 11:02 AM PST Approved by: Rocco Cheek MD on 08/24/2022 11:02 AM PST Station ID: [id number]
== END 2022-08-24 09:41 | disposition home or self-care (01) ==
LOC: DI 09:40
PROVIDERS: ATTEND Registered Nurse
DX: M85.89 Other specified disorders of bone density and structure, multiple sites (principal)

== ENCOUNTER 2022-09-23 08:20 | Day surgery (SDC) | payer MEDICARE, BC ==
[2022-09-23] MEDS ORDERED: LACTATED RINGERS 1,000 ML IV ONE ×2 (08:23→09:55)
[2022-09-23] MEDS ORDERED: PROPOFOL 500 MG/50 ML 500 MG/50 ML VIAL ONE (08:39)
[2022-09-23] MEDS ORDERED: MIDAZOLAM 2 MG/2 ML VIAL ONE (09:06)
--- NOTE | 2022-09-23 09:07 | ANESTHESIA ---
Pre-Anesthesia VS, & Labs - Diagnosis hx colon polyp - Procedure colonoscopy Vital Signs: Temp Pulse Resp BP Pulse Ox O2 Flow Rate 36.2 C L 78 18 153/74 H 96 09/23/22 08:23 09/23/22 08:23 09/23/22 08:23 09/23/22 08:23 09/23/22 08:23 Height: 5 ft 5 in Weight (kg): 85.7 kg Body Mass Index: 31.4 BMI Classification: Obese - NPO >8 hours Last Fluid Intake: am prep - Is Patient ?: No - Lab Results Lab results reviewed: Yes Home Medications and Allergies Home Medications: Ambulatory Orders [place]-3/Dha/Epa/Fish Oil [Fish Oil 1,000 mg Softgel] 1,000 mg ORAL DAILY 09/22/22 metFORMIN [Glucophage] 1,000 mg PO DAILY 09/22/22 Calcium [Calcio [place]] 600 mg PO DAILY 03/16/13 Cholecalciferol (Vitamin D3) [Vitamin D3] 2,000 unit PO DAILY 03/16/13 Hydrochlorothiazide 25 mg PO DAILY 03/16/13 Losartan [Cozaar] 100 mg PO DAILY 03/16/13 Lovastatin [Mevacor] 20 mg PO DAILY 03/16/13 Multivitamin [Multivitamins] 1 each PO DAILY 03/16/13 atenoloL [Tenormin] 25 mg PO DAILY 03/16/13 Biotin 5,000 mcg PO DAILY 06/08/16 [place]-3/Dha/Epa/Fish Oil [Fish Oil 1,000 mg Softgel] 1,000 mg ORAL DAILY 09/22/22 metFORMIN [Glucophage] 1,000 mg PO DAILY 09/22/22 Allergies/Adverse Reactions: Allergies Allergy/AdvReac Type Severity Reaction Status Date / Time adhesive Allergy Unknown Verified 08/26/20 11:18 melon Allergy Hives Verified 08/26/20 11:18 silver * Allergy Rash Verified 08/26/20 11:18 [From Tegaderm AG Mesh] strawberry Allergy Hives Verified 08/26/20 11:18 watermelon Allergy Hives Verified 08/26/20 11:18 Anes History & Medical History - Anesthetic History Anesthesia Complications: reports: No previous complications Family history of Anesthesia Complications: Denies Family history of Malignant Hyperthermia: Denies - Medical History Cardiovascular: reports: Hypertension, High cholesterol Pulmonary: reports: None Gastrointestinal: reports: None Urinary: reports: Other Neuro: reports: None Musculoskeletal: reports: None Endocrine/Autoimmune: reports: Other Blood Disorders: reports: None Skin: reports: None Smoking Status: Never smoker - Surgical History General: reports: Colonoscopy Eyes Ears Nose Throat (EENT): reports: Cataracts Urologic: reports: Bladder surgery Gynecologic: reports: Other Exam General: Alert, Oriented x3, Cooperative Dental: WNL Mouth Openin Fingerbreadth Neck Mobility: Normal Mallampati classification: II Thyromental Distance: 4-6 cm Respiratory: Lungs clear, Normal breath sounds, No respiratory distress Cardiovascular: Regular rate Neurological: Normal speech Mental/Cognitive Status: Alert/Oriented X3, Normal for patient Cognitive Status: Within normal limits Plan Anesthesia Type: Total IV Consent for Procedure(s) Verified and Reviewed: Yes Code Status: Attempt Resuscitation ASA classification: 2-Mild systemic disease Is this case an emergency?: No
[2022-09-23] MEDS ORDERED: SIMETHICONE 40 MG/0.6 ML 30 ML BOTTLE PO ONE (09:39)
[2022-09-23 10:28] VITALS: BP 118/49
--- NOTE | 2022-09-23 10:28 | ANESTHESIA POST OP EVALUATION ---
Anesthesia Post Eval - Post Anesthesia Eval Vitals: Last Vital Signs Temp 36.0 C L 09/23/22 09:55 Pulse 68 09/23/22 10:27 Resp 16 09/23/22 10:27 BP 118/49 L 09/23/22 10:27 Pulse Ox 98 09/23/22 10:27 O2 Flow Rate CV Function Including HR & BP: Stable Pain Control: Satisfactory Nausea & Vomiting: Negative Mental Status: Baseline Respiratory Status: Airway Patent Hydration Status: Satisfactory Anesthesia Complications: None
== END 2022-09-23 08:21 | disposition home or self-care (01) ==
LOC: SDS 08:20
PROVIDERS: ATTEND Surgery
PROC: 0DBM8ZZ Excision of Descending Colon, Via Natural or Artificial Opening Endoscopic (ICD-10-PCS; principal; 2022-09-23 09:30)
DX: Z12.11 Encounter for screening for malignant neoplasm of colon (principal); D12.4 Benign neoplasm of descending colon; Z85.3 Personal history of malignant neoplasm of breast; Z85.51 Personal history of malignant neoplasm of bladder; E66.9 Obesity, unspecified; Z68.31 Body mass index [BMI] 31.0-31.9, adult
CPT/HCPCS: 45380; A9270; J7120

== ENCOUNTER 2023-04-13 08:50 | Outpatient (CLI) | payer MEDICARE, BC ==
[2023-04-13 09:04] LABS: BASOPHILS % (AUTO) 0.5 %; EOSINOPHILS # (AUTO) 0.1 10^3/uL (0.0-0.7); EOSINOPHILS % (AUTO) 1.3 %; HCT - HEMATOCRIT 45.1 % (37.0-47.0); HGB - HEMOGLOBIN 15.3 g/dL (12.0-16.0); LYMPHOCYTES # (AUTO) 2.1 10^3/uL (1.5-3.5); LYMPHOCYTES % (AUTO) 35.1 %; MEAN CORPUSCULAR HEMOGLOBIN 32.8 pg (27.0-31.0); MEAN CORPUSCULAR HGB CONC 33.9 g/dL (32.0-36.0); MEAN CORPUSCULAR VOLUME 96.6 fL (81.0-99.0); MEAN PLATELET VOLUME 9.3 fL (7.9-10.8); MONOCYTES # (AUTO) 0.6 10^3/uL (0.0-1.0); MONOCYTES % (AUTO) 9.5 %; NEUTROPHILS # (AUTO) 3.3 10^3/uL (1.5-6.6); NEUTROPHILS % (AUTO) 53.4 %; PLT - PLATELET COUNT 280 10^3/uL (130-450); RED BLOOD COUNT 4.67 10^6/uL (4.20-5.40); RED CELL DISTRIBUTION WIDTH 11.3 % (12.0-15.0); WHITE BLOOD COUNT 6.1 x10^3/uL (4.8-10.8)
[2023-04-13 09:39] LABS: CHOLESTEROL 153 mg/dL; GLUCOSE 108 mg/dL (74-104); TRIGLYCERIDES 177 mg/dL (48-352); VLDL CHOLESTEROL 35 mg/dL
[2023-04-13 11:23] LABS: FERRITIN 253.2 ng/mL (11.0-306.8)
[2023-04-13 11:38] LABS: ESTIMATED AVERAGE GLUCOSE 126 mg/dL (70-100)
[2023-04-14] LABS: CHOL/HDL RATIO 3.3 (<4.4); HDL CHOLESTEROL 47 mg/dL; LDL CHOLESTEROL,CALCULATED 71 mg/dL; LDL/HDL RATIO 1.5 (<4.4)
== END 2023-04-13 08:51 | disposition home or self-care (01) ==
LOC: LAB 08:50
PROVIDERS: ATTEND Registered Nurse
DX: R73.03 Prediabetes (principal); E78.5 Hyperlipidemia, unspecified; R71.8 Other abnormality of red blood cells
CPT/HCPCS: 36415; 80061; 82728; 82947; 83036; 83721; 85025

== ENCOUNTER 2023-04-28 08:21 | Outpatient (CLI) | payer MEDICARE, BC ==
--- NOTE | 2023-04-28 12:24 | Ultrasound Report ---
PROCEDURE: Head or Neck Soft Tissue INDICATIONS: GOITER TECHNIQUE: Real-time scanning was performed of the thyroid gland, with image documentation. COMPARISON: None FINDINGS: Right: Thyroid lobe measures 5.6 x 2.7 x 3.1 cm, and is heterogeneous in echotexture. Left: Thyroid lobe measures 5.7 x 1.7 x 2.7 cm, and is heterogeneous in echotexture. Isthmus: 3 mm thick. Nodule number: One Location: Right lobe Size: 5.2 x 2.3 x 2.9 cm. Composition: Solid (2 points). Echogenicity: Isoechoic (1 point). Shape: wider than tall (0 points).. Margins: Smooth (0 points). Echogenic foci: None (0 points). Total points: 3 ACR TI-RADS category: TI-RADS 3: Mildly suspicious. Nodule number: Two Location: Left lobe Size: 4.2 x 1.3 x 2.6 cm. Composition: Solid (2 points). Echogenicity: Isoechoic (1 point). Shape: wider than tall (0 points).. Margins: Smooth (0 points). Echogenic foci: None (0 points). Total points: 3 ACR TI-RADS category: TI-RADS 3: Mildly suspicious. IMPRESSION: Nodules are present in both lobes of the thyroid gland which meet TI-RADS criteria for FNA recommenda tion. ACR TI-RADS definitions and recommendations: TI-RADS 1 (benign): 0 points. FNA not needed. TI-RADS 2 (not suspicious): 2 points. FNA not needed. TI-RADS 3 (mildly suspicious): 3 points. "FNA if 2.5 cm or larger, follow up if 1.5 cm or larger (at 1, 3, and 5 years). TI-RADS 4 (moderately suspicious): 4-6 points. "FNA if 1.5 cm or larger, follow up if 1 cm or larger (at 1, 2, 3, and 5 years). TI-RADS 5 (highly suspicious): 7 points or more. "FNA if 1 cm or larger, follow up if 0.5 cm or larger (every year for 5 years). Reviewed by: Rocco Logan MD on 04/28/2023 12:22 PM PDT Approved by: Rocco Logan MD on 04/28/2023 12:22 PM PDT Station ID: [id number]
== END 2023-04-28 08:22 | disposition home or self-care (01) ==
LOC: DI 08:21
PROVIDERS: ATTEND Registered Nurse
DX: E04.2 Nontoxic multinodular goiter (principal)

== ENCOUNTER 2023-07-07 09:49 | Outpatient (CLI) | payer MEDICARE, BC ==
[~2023-07-07 09:49] MED LIST: LIDOCAINE-MPF 1% 5 ML VIAL ONE
--- NOTE | 2023-07-07 16:15 | Ultrasound Report ---
PROCEDURE: Soft Tissue Head or Neck INDICATIONS: THYROID NODULE TECHNIQUE: Real-time scanning was performed of the thyroid gland, with image documentation. COMPARISON: Thyroid ultrasound 04/28/2023 FINDINGS: Thyroid was evaluated with real-time scanning. The distinct masses identified on prior ultrasound wer e unable to be clearly delineated on current exam. The thyroid gland is overall prominent and diffuse ly heterogeneous. It is felt that the delineation of discrete masses bilaterally on prior exam was ar tifactual based on real-time scanning today. IMPRESSION: Diffuse heterogeneous appearance of the thyroid without focal defined mass as above. Given the above, FNA was canceled and recommend ultrasound follow-up in 6 months. Reviewed by: Clarissa Butler MD on 07/07/2023 4:14 PM PST Approved by: Clarissa Butler MD on 07/07/2023 4:14 PM PST Station ID: [id number]
== END 2023-07-07 09:50 | disposition home or self-care (01) ==
LOC: DI 09:49
PROVIDERS: ATTEND Registered Nurse
DX: E04.1 Nontoxic single thyroid nodule (principal)

== ENCOUNTER 2023-08-12 07:33 | Outpatient (CLI) | payer MEDICARE, BC ==
--- NOTE | 2023-08-12 12:06 | Mammography Report ---
BILATERAL DIGITAL SCREENING MAMMOGRAM 3D/2D: 08/12/2023 CLINICAL: Routine screening. Personal history of left breast cancer. Comparison is made to exams dated: 08/16/2022 mammogram, 08/17/2021 mammogram, 08/12/2020 mammogram, 09/02 mammogram, 08/08/2019 mammogram, and 08/04/2018 mammogram - [facility]. There are scattered areas of fibroglandular density in both breasts (category b / 25%-50% glandular t issue). There are benign calcifications in both breasts. There also are benign post operative findings in th e left breast. No significant masses, calcifications, or other findings are seen in either breast. There has been no significant interval change. IMPRESSION: BENIGN There is no mammographic evidence of malignancy. A 1 year screening mammogram is recommended. This exam was interpreted at Station ID: [id number]. NOTE: For mammograms, a report in lay terms will be sent to the patient. Approximately 15% of breast malignancies will not be visualized mammographically. In the management of a palpable breast mass, a negative mammogram must not discourage biopsy of a clinically suspicious lesion. Electronically Signed By: Shahram peace/fely:08/12/2023 08:31:46 letter sent: No_Letter ACR BI-RADS Category 2: Benign Finding(s) 3342F PARENCHYMAL PATTERN: (A) - The breast(s) demonstrate(s) scattered fibroglandular densities. BI-RADS CATEGORY: (2) - 2 Mammogram [id number] 1 year screening LATERALITY: (B)
== END 2023-08-12 07:34 | disposition home or self-care (01) ==
LOC: DI 07:33
DX: Z12.31 Encounter for screening mammogram for malignant neoplasm of breast (principal); R92.323 Mammographic fibroglandular density, bilateral breasts; Z85.3 Personal history of malignant neoplasm of breast

== ENCOUNTER 2024-01-02 18:31 | Outpatient (CLI) | payer MEDICARE, BC ==
--- NOTE | 2024-01-02 23:12 | Ultrasound Report ---
PROCEDURE: Soft Tissue Head or Neck INDICATIONS: THYROID NODULE TECHNIQUE: Real-time scanning was performed of the thyroid gland, with image documentation. COMPARISON: 04/28/2023 FINDINGS: Right: Thyroid lobe measures 5.6 x 2.4 x 3.2 cm. Left: Thyroid lobe measures 5.4 x 1.7 x 2.6 cm Isthmus: 0.2 cm thick. Echotexture: Homogeneous. Nodule number: One Location: Left Size: 5.4 x 1.0 x 2.6 cm, previously 4.2 x 1.3 x 2.6 cm. Composition: Solid. Echogenicity: Isoechoic. Shape: wider than tall (0 points). Margins: Smooth (0 points). Echogenic foci: None (0 points). Total points: 4 ACR TI-RADS category: 4 IMPRESSION: Category 4 left thyroid nodule is slightly larger than prior exam ACR TI-RADS definitions and recommendations: TI-RADS 1 (benign): 0 points. FNA not needed. TI-RADS 2 (not suspicious): 2 points. FNA not needed. TI-RADS 3 (mildly suspicious): 3 points. "FNA if 2.5 cm or larger, follow up if 1.5 cm or larger (at 1, 3, and 5 years). TI-RADS 4 (moderately suspicious): 4-6 points. "FNA if 1.5 cm or larger, follow up if 1 cm or larger (at 1, 2, 3, and 5 years). TI-RADS 5 (highly suspicious): 7 points or more. "FNA if 1 cm or larger, follow up if 0.5 cm or larger (every year for 5 years). Reviewed by: Artemio Cosme MD on 01/02/2024 10:11 PM RODNEY Approved by: Artemio Cosme MD on 01/02/2024 10:11 PM [email or web address] Station ID: [id number]
== END 2024-01-02 18:32 | disposition home or self-care (01) ==
LOC: DI 18:31
PROVIDERS: ATTEND Registered Nurse
DX: E04.1 Nontoxic single thyroid nodule (principal)